=== PATIENT | male | born 1935 | race Caucasian/White ===

== ENCOUNTER → 2021-11-21 | Outpatient (CLI) | payer OTHER, MEDICARE ==
[~2021-11-21] MED LIST: ASPIRIN EC81 M1 PO; ASPIRIN325 PO; FIORINAL CAPSUL1 CA1 PO; FOLIC ACID 1 MG1 MG PO; METOPROLOL SUCC25 M1 PO; TUMS E.S.750 MG PO; TUMS PO; VITAMIN D1000 UNI1 PO; ZOCOR 10 MG TAB10 M1 PO
== END ==
LOC: RAD 11:36
PROVIDERS: ATTEND Family Medicine
DX: M19.031 Primary osteoarthritis, right wrist (principal); M19.011 Primary osteoarthritis, right shoulder; M50.323 Other cervical disc degeneration at C6-C7 level; M50.322 Other cervical disc degeneration at C5-C6 level; M47.812 Spondylosis without myelopathy or radiculopathy, cervical region